=== PATIENT | female | born 1935 | race Hispanic/Latino ===

== ENCOUNTER 2016-12-25 15:42 | Emergency (ER) | payer MEDICARE, OTHER ==
[2016-12-25 15:51] VITALS: BMI 30.2
[2016-12-25] MEDS ORDERED: Sodium Chloride 0.9% 1,000 ML IV ONE (16:47)
[2016-12-25] MEDS ORDERED: Sodium Chloride 0.9% 1,000 ML ONE (17:27)
[2016-12-25 19:33] VITALS: BP 158/74; PULSE 79; RESP 20; TEMP 98.2; O2SAT 95
--- NOTE | 2016-12-25 20:45 | C.PDOC ---
History Of Present Illness 81 y/o female, with history of liver transplant in 1992, presents to emergency department with complaint of mild nausea and 6 episodes of vomiting this morning. Denies abdominal pain, chest pain, shortness of breath, fever. Currently in the ER, patient is not actively vomiting, with reported minimal nausea. Patient recently had bloodwork by PMD 3 days ago, print out of results brought by patient and reviewed by me, showing normal labs. Chief Complaint (Nursing): GI Problem History Per: Patient History/Exam Limitations: no limitations Onset/Duration Of Symptoms: Hrs Current Symptoms Are (Timing): Still Present Reports Recently: Treated By A Physician Recent travel outside of the [place]: No Past Medical History Reviewed: Historical Data, Nursing Documentation, Vital Signs Vital Signs: Last Vital Signs Temp 98.2 F 12/25/16 19:33 Pulse 79 12/25/16 19:33 Resp 20 12/25/16 19:33 BP 158/74 H 12/25/16 19:33 Pulse Ox 95 12/25/16 20:45 - Medical History PMH: Arthritis, Asthma, Atrial Fibrillation, Bronchitis, CHF, Diabetes, HTN, Hypercholesterolemia, Malignancy (Breast), Pneumonia (2013) Comment Only: COPD (BRONCHITIS) Surgical History: Coronary Stent - [facility] Procedures ENDOSC POLYPECTOMY OF LG INTEST (12/04/03) INJECT/INFUSE NEC (01/02/07) MRI OF OTHER AND UNSPECIFIED SITES (08/09/06) NON-INVASIVE MECHANICAL VENTILATION (06/22/14) Family History: States: Unknown Family Hx - Social History Hx Tobacco Use: No Hx Alcohol Use: No Hx Substance Use: No - Immunization History Hx Tetanus Toxoid Vaccination: No Hx Influenza Vaccination: Yes Hx Pneumococcal Vaccination: Yes Review Of Systems Except As Marked, All Systems Reviewed And Found Negative. Constitutional: Negative for: Fever, Chills Cardiovascular: Negative for: Chest Pain Respiratory: Negative for: Shortness of Breath Gastrointestinal: Positive for: Nausea, Vomiting. Negative for: Abdominal Pain Skin: Negative for: Rash Neurological: Negative for: Headache, Dizziness Physical Exam - Physical Exam Appears: Non-toxic, No Acute Distress Skin: Normal Color, Warm, Dry Head: Atraumatic, Normacephalic Oral Mucosa: Moist Chest: Symmetrical Cardiovascular: Rhythm Regular Respiratory: Normal Breath Sounds, No Rales, No Rhonchi, No Wheezing Gastrointestinal/Abdominal: Soft, No Tenderness, No Distention, No Guarding, No Rebound, Other (Pascale-Tahir scar ) Back: Normal Inspection Extremity: Normal ROM, Capillary Refill (< 2 sec. ) Neurological/Psych: Oriented x3, Normal Speech, Normal Cognition ED Course And Treatment O2 Sat by Pulse Oximetry: 95 (RA) Pulse Ox Interpretation: Normal Progress Note: On re-eval, after slow hydration, Pepcid, and Zosyn, patient has no symptoms at this time. Patient discharged with prescriptions and instructed to follow up with PMD. Disposition - Disposition Referrals: Cierra Mazariegos, [Non-Staff] - Disposition: HOME/ ROUTINE Disposition Time: 18:50 Condition: IMPROVED Additional Instructions: Thank you for letting us take care of you today. Your provider was Dr. Cortez. You were treated for nausea. The emergency medical care you received today was directed at your acute symptoms. If you were prescribed any medication , please fill it and take as directed. It may take several days for your symptoms to resolve. Return to the Emergency Department if your symptoms worsen , do not improve, or if you have any other problems. Please contact your doctor or call one of the physicians/clinics you have been referred to that are listed on the Patient Visit Information form that is included in your discharge packet. Bring any paperwork you were given at discharge with you along with any medications you are taking to your follow up visit. Our treatment cannot replace ongoing medical care by a primary care provider (PCP) outside of the emergency department. Thank you for allowing the [facility] team to be part of your care today. Follow up with your doctor in 2-3 days for re-evaluation. Prescriptions: Ondansetron ODT [Zofran ODT] 8 mg PO Q6 PRN #20 odt PRN Reason: Nausea/Vomiting Instructions: Acute Nausea and Vomiting (ED) - Clinical Impression Clinical Impression: Vomiting, Nausea - Scribe Statement The provider has reviewed the documentation as recorded by the Eveibratna Salomon All medical record entries made by the Eveibratna were at my direction and personally dictated by me. I have reviewed the chart and agree that the record accurately reflects my personal performance of the history, physical exam, medical decision making, and the department course for this patient. I have also personally directed, reviewed, and agree with the discharge instructions and disposition.
== END 2016-12-25 19:46 | disposition home or self-care (01) ==
LOC: C.ER 15:42
DX: R11.2 Nausea with vomiting, unspecified (principal)
CPT/HCPCS: 96361; 96374; 96375; 99283; J2405; J7040

== ENCOUNTER 2017-08-26 16:19 | Emergency (ER) | payer MEDICARE, OTHER ==
[2017-08-26 16:20] VITALS: BMI 30.2
[2017-08-26 16:32] VITALS: PULSE 55
--- NOTE | 2017-08-26 18:48 | C.PDOC ---
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 Patient is accompanied by daughter, who states the patient self initiated course of Augmentin 4 days ago but has not had any relief. Daughter is concerned for systematic infection given that the patient is immune compromised. Denies fever, chills, chest pain, SOB, drooling, nausea, vomiting, headache, weakness or numbness. Time Seen by Provider: 08/26/17 17:52 Chief Complaint (Nursing): ENT Problem History Per: Patient History/Exam Limitations: None Onset/Duration Of Symptoms: Days Past Medical History Reviewed: Historical Data, Nursing Documentation, Vital Signs Vital Signs: Last Vital Signs Temp 97.8 F 08/26/17 20:30 Pulse 55 L 08/26/17 20:30 Resp 18 08/26/17 20:30 BP 166/71 H 08/26/17 20:30 Pulse Ox 96 08/26/17 20:30 - Medical History PMH: Arthritis, Asthma, Atrial Fibrillation, Bronchitis, CHF, Diabetes, HTN, Hypercholesterolemia, Malignancy (Breast), Pneumonia (2013) Comment Only: COPD (BRONCHITIS) Surgical History: Coronary Stent - [facility] Procedures ENDOSC POLYPECTOMY OF LG INTEST (12/04/03) INJECT/INFUSE NEC (01/02/07) MRI OF OTHER AND UNSPECIFIED SITES (08/09/06) NON-INVASIVE MECHANICAL VENTILATION (06/22/14) Family History: States: No Known Family Hx - Social History Hx Tobacco Use: No Hx Alcohol Use: No Hx Substance Use: No - Immunization History Hx Tetanus Toxoid Vaccination: No Hx Influenza Vaccination: Yes (2017) Hx Pneumococcal Vaccination: Yes (2017) Review Of Systems Except As Marked, All Systems Reviewed And Found Negative. Constitutional: Negative for: Fever, Chills ENT: Positive for: Nose Discharge, Nose Congestion Cardiovascular: Negative for: Chest Pain Respiratory: Negative for: Shortness of Breath Gastrointestinal: Negative for: Nausea, Vomiting Neurological: Negative for: Weakness, Numbness, Headache Physical Exam - Physical Exam Appears: Non-toxic, No Acute Distress Skin: Warm, Dry, No Rash Head: Atraumatic, Normacephalic Ear(s): Bilateral: Normal Nose: Other ((+) bilateral tenderness over the maxilla) Oral Mucosa: Moist Throat: Normal, No Erythema, No Exudate, No Drooling, No Mass Neck: Normal, Normal ROM, Supple Cardiovascular: Rhythm Regular, No Murmur Respiratory: Normal Breath Sounds, No Rales, No Rhonchi, No Stridor, No Wheezing Gastrointestinal/Abdominal: Normal Exam, Soft, No Tenderness, No Guarding, No Rebound Extremity: Normal ROM, No Swelling Neurological/Psych: Oriented x3, Normal Speech, Normal Motor ED Course And Treatment - Laboratory Results Result Diagrams: 08/26/17 18:59 08/26/17 18:59 O2 Sat by Pulse Oximetry: 97 (RA) Pulse Ox Interpretation: Normal Medical Decision Making Medical Decision Making: IMPRESSION: Sinusitis, rule out pneumonia PLAN: * CXR * CBC * CMP Disposition - Disposition Referrals: Lavelle Perez MD [Staff Provider] - Disposition: HOME/ ROUTINE Disposition Time: 19:49 Condition: FAIR Prescriptions: Azithromycin [Zithromax] 250 mg PO DAILY #6 tab Instructions: Sinusitis (ED) Forms: [employer] (Spanish) - Clinical Impression Clinical Impression: Sinusitis - Scribe Statement The provider has reviewed the documentation as recorded by the Eveibe Meron Mckee Provider Attestation: All medical record entries made by the Eveibe were at my direction and personally dictated by me. I have reviewed the chart and agree that the record accurately reflects my personal performance of the history, physical exam, medical decision making, and the department course for this patient. I have also personally directed, reviewed, and agree with the discharge instructions and disposition.
[2017-08-26 19:02] LABS: BASO % 0.9 % (0.0-2.0); EOS # 0.1 K/uL (0.0-0.7); EOS % 1.1 % (0.0-4.0); HEMOGLOBIN 12.4 g/dL (11.0-16.0); LYMPH # 1.6 K/uL (1.0-4.3); LYMPH % 32.7 % (20.0-40.0); MEAN CELL VOLUME 92.7 fL (81.0-99.0); MEAN CORPUSCULAR HEMOGLOBIN 30.9 pg (27.0-31.0); MEAN CORPUSCULAR HGB CONC 33.3 g/dL (33.0-37.0); MEAN PLATELET VOLUME 9.4 fL (7.2-11.7); MONO # 0.4 K/uL (0.0-0.8); NEUT # 2.8 K/uL (1.8-7.0); NEUT % 57.3 % (50.0-75.0); NRBC % 0.2 % (0.0-2.0); RBC 4.02 Mil/uL (3.80-5.20); RED CELL DISTRIBUTION WIDTH 13.7 % (11.5-14.5); WHITE BLOOD COUNT 4.9 K/uL (4.8-10.8)
[2017-08-26 19:14] LABS: ALB/GLOB RATIO 1.2 (1.0-2.1); ALBUMIN 3.9 g/dL (3.5-5.0); ALT/SGPT 19 U/L (9-52); AST/SGOT 18 U/L (14-36); BLOOD UREA NITROGEN 12 mg/dL (7-17); CALCIUM 7.7 mg/dl (8.6-10.4); GFR AFRICAN-AMERICAN > 60; GFR NON-AFRICAN AMERICAN 53
[2017-08-26 20:31] VITALS: BP 166/71; RESP 18; TEMP 97.8
[2017-08-26 23:48] VITALS: O2SAT 97
--- NOTE | 2017-08-27 09:03 | RAD ---
HISTORY: cough COMPARISON: None available. TECHNIQUE: Chest PA and lateral FINDINGS: LUNGS: Mild pulmonary venous congestion. Chronic interstitial markings. Right hilar prominence. No focal consolidation. Please note that chest x-ray has limited sensitivity for the detection of pulmonary masses. PLEURA: No significant pleural effusion identified. No definite pneumothorax . CARDIOVASCULAR: Cardiomegaly. OSSEOUS STRUCTURES: Osseous demineralization. VISUALIZED UPPER ABDOMEN: Unremarkable. OTHER FINDINGS: None. IMPRESSION: Mild pulmonary venous congestion. Chronic interstitial markings. Right hilar prominence. Cardiomegaly.
== END 2017-08-26 20:52 | disposition home or self-care (01) ==
LOC: C.ER 16:19
DX: J32.9 Chronic sinusitis, unspecified (principal); E11.9 Type 2 diabetes mellitus without complications; E78.00 Pure hypercholesterolemia, unspecified; I48.91 Unspecified atrial fibrillation; I10 Essential (primary) hypertension; I50.9 Heart failure, unspecified; Z94.4 Liver transplant status